=== PATIENT | female | born 1970 | race Caucasian/White ===

== ENCOUNTER 2017-01-19 09:06 | Observation (INO) ==
[2017-01-19] MEDS ORDERED: *HR* Promethazine 25 MG/ML VIAL IM ONE (09:15)
[2017-01-19] MEDS ORDERED: *HR* HYDROmorphone (PF) 1 MG/ML SYRINGE IM ONE ×2 (09:15→09:53)
--- NOTE | 2017-01-19 09:15 | Emergency Department Note ---
Disposition Clinical Impression: Intractable vomiting with nausea UTI (urinary tract infection) Qualifiers: Urinary tract infection type: acute cystitis Hematuria presence: without hematuria Qualified Code(s): N30.00 - Acute cystitis without hematuria Disposition: Admitted As Inpatient Condition: Good Back Pain HPI - General Chief Complaint: ED Urogenital-Female Stated Complaint: "think I have a kidney stone" Time Seen by Provider: 01/19/17 09:13 Source: patient, family Mode of arrival: private vehicle Limitations: no limitations Nursing Notes Reviewed: Yes Vital Signs Reviewed: Yes - History of Present Illness HPI Narrative: History of that she woke 2-3 hours prior to arrival severe sharp pain in her left flank. With that she has had persistent nausea, vomiting and dry heaving. She relates she has had similar pains before with kidney stones with the last one being about 6 months ago. She also states she has had a partial nephrectomy and had a reconstruction on her bladder. Nothing makes this pain better or worse. She denies associated diarrhea, constipation or urinary trouble. She denies any vaginal discharge or bleeding. She states she is on Depo-Provera and has no concern for current . Pt Subjective Complaint: back pain Onset (ago): hour(s) (2) Duration: constant Similar Symptoms Previously: Yes Location: left flank Pain Severity: severe Quality: sharp Radiation: none Improves with: none Worsens with: none Context: history of kidney stones Associated symptoms: Denies: numbness, weakness, difficulty walking, incontinence of bowel/bladder, fever, chills, abdominal pain, dysuria, hematuria - Related Data Home Medications Medication Instructions Recorded Confirmed Tizanidine HCl [Zanaflex] 4 mg PO BID 08/13/16 01/19/17 Carisoprodol [Soma] 350 mg PO QID 11/10/16 01/19/17 Previous Rx's Medication Instructions Recorded Gabapentin [Neurontin] 200 mg PO TID #21 capsule 08/13/16 Allergies Allergy/AdvReac Type Severity Reaction Status Date / Time meloxicam Allergy See Verified 01/19/17 09:07 Comments steriods Allergy See Uncoded 01/19/17 09:07 Comments All systems ED: reviewed and negative except as stated. Past Medical History - Past Medical History Attestation: Yes The following information was validated with the patient. Source: patient, old records reviewed, nursing notes reviewed Medical history: Reports: arthritis, GERD, kidney stones, renal disease Surgical history: Reports: other (left kidney partial resection, bladder reconstruction.) Psychiatric history: Reports: no psych history REJOGGER history: Reports: bilateral tubal ligation - Social History Smoking Status: Current every day smoker Smokeless Tobacco Status: No Alcohol use: Reports: none Drug use: Reports: marijuana Physical Exam - General Limitations: no limitations General appearance: alert, in distress - Head Head exam: atraumatic, normocephalic, normal inspection - Eye Eye exam: Present: normal appearance, PERRL, EOMI. Absent: scleral icterus, conjunctival injection - ENT ENT exam: normal exam, normal oropharynx, mucous membranes moist - Neck Neck exam: Present: normal inspection, full ROM, trachea midline - Chest Chest inspection: Present: normal inspection, symmetric chest wall rise - Respiratory Respiratory exam: Present: normal lung sounds bilaterally. Absent: respiratory distress, wheezes, prolonged expiratory phase - Cardiovascular Cardiovascular exam: Present: regular rate, normal rhythm, normal heart sounds - Abdominal Exam Abdominal exam: Present: soft, Non-Tender, normal bowel sounds. Absent: tenderness, distention, guarding, rebound, rigidity - Extremities Exam Extremities exam: Present: normal inspection, full ROM, normal capillary refill. Absent: tenderness, pedal edema - Expanded Lower Extremity Exam Neurovascular/Tendon exam: Present: normal capillary refill. Absent: motor deficit, sensory deficit, tendon deficit Gait: observed and normal - Back Exam Back exam: Present: normal inspection, full ROM. Absent: tenderness, CVA tenderness (R), CVA tenderness (L), vertebral tenderness - Neurological Exam Neurological exam: Present: alert, oriented X3, normal gait - Psychiatric Psychiatric exam: Present: agitated, anxious - Skin Skin exam: Present: warm, intact, normal color, diaphoresis Course Course Narrative: 1040: Patient continues with pain to the nausea and dry heaving. I reviewed the old record and she previously has been culture positive for urinary tract infection with this pain was 0-3 white cells in her urine. She has been written to continue IV fluids, 4 of Rocephin IV and a dose of IV Ativan. Dr. Hawkins is being contacted to coordinate inpatient care this patient. Vital Signs Temperature 96.5 F L 01/19/17 09:10 Temperature 98.7 F 01/19/17 14:35 Pulse Rate 46 01/19/17 14:35 Respiratory Rate 12 01/19/17 14:35 Blood Pressure 165/127 01/19/17 14:35 O2 Sat by Pulse Oximetry 98 01/19/17 14:35 Oxygen Delivery Oxygen Delivery Room Air Back Pain/Injury - Differential Diagnosis Differential Diagnosis: Likely: strain of lumbar region, renal colic - Medical Records Medical records reviewed: Yes I reviewed the patient's medical records. Patient has had previous similar episode secondary to urinary tract infection. - Lab Data Lab results reviewed: Yes I reviewed the patient's lab results. Result diagrams: 01/19/17 10:22 01/19/17 10:22 Lab Results 01/19/17 01/19/17 01/19/17 Range/Units 09:21 10:22 10:22 WBC 9.3 (4.3-11.1) K/mcL RBC 4.61 (3.82-4.97) M/mcL Hgb 15.1 (11.5-15.4) g/dL Hct 44.3 (35.3-44.9) % MCV 96.1 (83.0-100.0) fL MCH 32.8 (28.0-33.3) pg MCHC 34.1 (31.6-35.5) g/dL RDW 12.4 (11.5-14.5) % Plt Count 191 (140-400) K/mcL MPV 11.8 (9.4-12.4) fL Immature Gran % 0.6 (0-4) % Seg Neutrophils % 79.5 % Lymphocytes % 15.4 % Monocytes % 3.6 % Eosinophils % 0.1 % Basophils % 0.8 % Neutrophils # 7.4 (1.6-8.9) K/mcL Lymphocytes # 1.4 (0.6-4.6) K/mcL Monocytes # 0.3 (0.0-1.3) K/mcL Eosinophils # 0.0 (0.0-0.6) K/mcL Basophils # 0.1 (0.0-0.2) K/mcL Sodium 141 (136-145) mEq/L Potassium 3.9 (3.5-4.5) mEq/L Chloride 109 (98-109) mEq/L Carbon Dioxide 16 L (19-29) mEq/L BUN 9 (7-20) mg/dL Creatinine 0.77 (0.57-1.11) mg/dL Est GFR ( Amer) > 60 (> 60) Est GFR (Non-Af Amer) > 60 (> 60) BUN/Creatinine Ratio 12 (6-26) Glucose 163 H (70-99) mg/dL Calculated Osmolality 294 (280-300) Calcium 10.1 (8.6-10.8) mg/dL Urine Color Dark Yellow (Yellow) Urine Clarity Slightly Cloudy A (Clear) Urine pH 5.5 (5.0-8.0) pH Units Ur Specific [place] >= 1.030 H (1.010-1.025) Urine Protein 100 H (Neg-Trace) mg/dL Urine Glucose (UA) Normal (Normal) mg/dL Urine Ketones 80 H (Negative) mg/dL Urine Blood Negative (Negative) Urine Nitrite Negative (Negative) Urine Bilirubin Moderate H (Negative) Urine Urobilinogen Normal (Normal) mg/dL Ur Leukocyte Esterase Negative (Negative) Urine Microscopic RBC 0-3 (0-3) per hpf Urine Microscopic WBC 0-3 (0-3) per hpf Ur Squamous Epith Cells Moderate H (None-Few) per lpf Urine Bacteria Moderate H (None-Few) per hpf Urine Mucus Moderate H (Few) Ur Culture Indicated? NO (NO) - Radiology Data Radiology results reviewed: Yes I reviewed the patient's radiology results. CT is performed of the abdomen and pelvis. This shows postsurgical changes to the left kidney with some nephrolithiasis present. Ureter appears free of obstruction or stone. No other acute processes seen in the abdomen to account for this patient's severe left flank pain. This is on my interpretation. Impressions Abdomen/Pelvis CT 01/19/17 09:14 IMPRESSION: Stable noncontrast findings of the abdomen and pelvis. No acute abnormality. D/ / Leena Mcmillan Cha, MD / Leena Mcmillan Cha, MD Interpreting Provider: Leena Mcmillan Cha, MD
[2017-01-19 09:26] LABS: Bilirubin,Urine Moderate (Negative); Blood,Urine Negative (Negative); Clarity,Urine Slightly Cloudy (Clear); Glucose,Urine (UA) Normal (Normal); Ketones,Urine 80 mg/dL (Negative); Leukocyte Esterase,Urine Negative (Negative); Nitrite,Urine Negative (Negative); PH,Urine 5.5 pH Units (5.0-8.0); Protein,Urine 100 mg/dL (Neg-Trace); Specific Gravity,Urine >= 1.030 (1.010-1.025); Urobilinogen,Urine Normal (Normal)
[2017-01-19 09:33] LABS: Color,Urine Dark Yellow (Yellow)
[2017-01-19 09:35] LABS: Bacteria,Urine Moderate per hpf (None-Few); Mucus,Urine Moderate (Few); RBC,Urine 0-3 per hpf (0-3); Squamous Epithelial Cell,Urine Moderate per lpf (None-Few); WBC,Urine 0-3 per hpf (0-3)
[2017-01-19] MEDS ORDERED: Ondansetron 4 MG/2 ML VIAL IM ONE (09:53)
[2017-01-19] MEDS ORDERED: 0.9 % Sodium Chloride 1,000 ML IVC ONE (09:54)
[2017-01-19 10:40] LABS: BUN/Creatinine Ratio 12 (6-26); Blood Urea Nitrogen 9 mg/dL (7-20); Calcium 10.1 mg/dL (8.6-10.8); Carbon Dioxide 16 mEq/L (19-29); Chloride 109 mEq/L (98-109); Glucose 163 mg/dL (70-99); Osmolality,Calculated 294 (280-300); Potassium 3.9 mEq/L (3.5-4.5); Sodium 141 mEq/L (136-145); eGFR For African Americans > 60 (> 60); eGFR For Non-African Americans > 60 (> 60)
[2017-01-19 10:41] LABS: Basophils # 0.1 K/mcL (0.0-0.2); Basophils % 0.8 %; Eosinophils % 0.1 %; Hematocrit 44.3 % (35.3-44.9); Hemoglobin 15.1 g/dL (11.5-15.4); Immature Granulocytes % 0.6 % (0-4); Lymphocytes # 1.4 K/mcL (0.6-4.6); Lymphocytes % 15.4 %; Mean Corpuscular HGB Conc 34.1 g/dL (31.6-35.5); Mean Corpuscular Hemoglobin 32.8 pg (28.0-33.3); Mean Corpuscular Volume 96.1 fL (83.0-100.0); Mean Platelet Volume 11.8 fL (9.4-12.4); Monocytes # 0.3 K/mcL (0.0-1.3); Monocytes % 3.6 %; Neutrophils # 7.4 K/mcL (1.6-8.9); Platelet Count 191 K/mcL (140-400); Red Blood Count 4.61 M/mcL (3.82-4.97); Red Cell Distribution Width 12.4 % (11.5-14.5); Segmented Neutrophils % 79.5 %
[2017-01-19] MEDS ORDERED: *HR* LORazepam 2 MG/ML VIAL IVP ONE (10:43)
[2017-01-19] MEDS ORDERED: Haloperidol Lactate 5 MG/ML VIAL IVP ONE (11:12)
[2017-01-19] MEDS ORDERED: 0.9 % Sodium Chloride 1,000 ML IVC SCH (13:28)
[2017-01-19] MEDS ORDERED: *HR* Promethazine 25 MG/ML VIAL IVP PRN (13:28)
[2017-01-19] MEDS ORDERED: Ondansetron 4 MG/2 ML VIAL IVP PRN ×2 (13:28→18:18)
[2017-01-19] MEDS ORDERED: Naloxone 0.4 MG/ML INJ IVP PRN (13:28)
[2017-01-19] MEDS: *HR* HYDROmorphone (PF) 1 MG/ML SYRINGE IVP PRN ×3 (13:47→21:57)
--- NOTE | 2017-01-19 18:09 | Internal Med History&Physical ---
Date of Encounter: 01/19/17 Time of Encounter: 17:35 Assessment and Plan (1) Intractable vomiting with nausea Current visit: Yes Status: Acute Etiology not obvious. Will continue IV fluids and analgesics and reassess patient and recheck labs in a.m. Qualifiers: Vomiting type: unspecified Qualified Code(s): R11.2 - Nausea with vomiting , unspecified Internal Medicine - H&P: HPI Chief complaint: Vomiting and left flank pain Admitted From: Home Plans for Post Hospital Care: Home History of present illness: Ms. Hobbs is a 46 year old female who came to emergency room stating she had developed severe left flank pain with vomiting early this morning. She states she vomited 8-10 times but denies hematemesis. She felt she was likely passing a kidney stone. She came to the emergency room and was evaluated. CT scan showed no obvious kidney stone outside of the left lower pole of the kidney. She did not have hematuria. She was admitted to [facility] floor for ongoing care needs. She reports her most recent similar episode of flank pain and vomiting was July 2016. She was told at that time it might be due to ovulation issues and she was placed on Depo-Provera. She was hospitalized last at [facility] December 2015 with vomiting and diarrhea possibly secondary to viral gastroenteritis. Past Med Surg Social Fam HX - Past Medical History Medical history: arthritis, GERD, kidney stones, renal disease Psychiatric history: no psych history - Past Surgical History Surgical History: other - Social History Smoking Status: Current every day smoker Smokeless Tobacco Status: No Alcohol use: none Drug use: marijuana - Family History Mother Hx Family Cardiac Disorders: No (grandmother had cardiac issue) Hx Family Respiratory Disorders: No Hx Family Cancer: Yes (cervix) Hx Family GI Disorders: Yes (GERD) Hx Family Endocrine Disorder: No (grandmother has DM) Hx Family Neuromuscular Disorders: No Hx Family Neurologic Disorders: No Hx Family HEENT Disorders: No Hx Family Autoimmune Disorders: No Internal Medicine - H&P: Meds Gabapentin [Neurontin] 200 mg PO TID #21 capsule 08/13/16 [Rx] Tizanidine HCl [Zanaflex] 4 mg PO BID 08/13/16 [History] Carisoprodol [Soma] 350 mg PO QID 11/10/16 [History] Allergies meloxicam Allergy (Verified 01/19/17 09:07) See Comments rectal bleeding steriods Allergy (Uncoded 01/19/17 09:07) See Comments rectal bleeding and stomach cramping All Systems PM: A 10-system review of systems was performed and is negative for pertinent findings except as documented above in the HPI. Review of systems: Review of systems from her December 2015 history and physical were reviewed and revised as below. Gen.: Her weight is increased from 67.614 kg on 12/27/2015 to 77.11 kg on admission now. Cardiovascular: She denies OK hypertension heart failure angina DVT or pulmonary embolus. Respiratory: She smoked since age 15 up to 2 packs per day. She has not been tested for COPD and does not wear home oxygen. GI: She denies disorders of her liver gallbladder or exocrine pancreas. : She had duplication of left ureter congenitally. She describes what sounds to be significant reflux resulting in recurrent UTIs and development of an abscess the left kidney. There was resection of the cyst/abscess area and resection of one of the ureters on the left side in 1988. She had reconstructive bladder surgery 1993 and 1995. She has had occasional UTIs since then. She states she has not seen a urologist in approximately 15 years. Neurologic: She denies large distribution strokes or seizures. Endocrine: She denies diabetes thyroid disease or hyperlipidemia Hematology/oncology: She denies blood disorders cancers or anemia. Psychiatric: She denies anxiety depression or other mental health issues Musk skeletal: She denies arthritis gout or osteoporosis. - Constitutional Vitals: Temp Pulse Resp BP Pulse Ox 98.7 F 46 12 165/127 98 01/19/17 14:35 01/19/17 14:35 01/19/17 14:35 01/19/17 14:35 01/19/17 14:35 Exam: Gen.: She is a well-developed well-nourished female lying in bed who appears in mild to moderate pain periodically during examination HEENT: Head is atraumatic and normal cephalic. Eyes: EOMI. There is no scleral icterus. Mouth: Mucosa is moist. Neck: Supple and nontender. There is no thyromegaly or adenopathy noted. Heart: Regular without murmurs gallops or ectopics Lungs: No wheezes or crackles are heard. Abdomen: Bowel sounds are present. No masses or guarding are noted. Extremities: There is no cyanosis edema or clubbing noted. Dorsalis pedis and posttibial pulses are 1-2 over 2 bilaterally. Neurologic: Mental status: She is talkative and a good historian. Cranial nerves: Smile is symmetric. Forehead wrinkles bilaterally. Tongue protrudes midline. EOMI. Motor: There is no pronator drift. Cerebellar: Finger to nose is intact bilaterally. Skin: Warm and dry Internal Med - H&P Results - Labs CBC & Chem 7: 01/19/17 10:22 01/19/17 10:22
[2017-01-19] MEDS: 0.45 % Sodium Chloride w/KCl 20 MEQ/1,000 ML MLS IVC SCH (18:58)
[2017-01-19] MEDS: *HR* Promethazine 25 MG/ML VIAL IVP PRN ×2 (18:59→23:05)
[2017-01-20 01:54] LABS: Amphetamine Screen,Urine Negative ng/mL (Cutoff=1000); Barbiturate Screen,Urine Negative ng/mL (Cutoff=200); Benzodiazepines Screen,Urine Positive ng/mL (Cutoff=200); Cannabinoid Screen,Urine Positive ng/mL (Cutoff = 50); Cocaine Screen,Urine Negative ng/mL (Cutoff= 300); Opiate Screen,Urine Negative ng/mL (Cutoff=300); Phencyclidine Screen,Urine Negative ng/mL (Cutoff=25)
[2017-01-20] MEDS: *HR* HYDROmorphone (PF) 1 MG/ML SYRINGE IVP PRN ×5 (02:24→21:02)
[2017-01-20] MEDS: *HR* Promethazine 25 MG/ML VIAL IVP PRN (03:10)
[2017-01-20] MEDS: 0.45 % Sodium Chloride w/KCl 20 MEQ/1,000 ML MLS IVC SCH ×2 (03:12→12:23)
[2017-01-20 08:20] LABS: Basophils % 0.3 %; Hematocrit 35.2 % (35.3-44.9); Hemoglobin 12.3 g/dL (11.5-15.4); Immature Granulocytes % 0.3 % (0-4); Lymphocytes # 1.5 K/mcL (0.6-4.6); Lymphocytes % 16.1 %; Mean Corpuscular HGB Conc 34.9 g/dL (31.6-35.5); Mean Corpuscular Hemoglobin 32.3 pg (28.0-33.3); Mean Corpuscular Volume 92.4 fL (83.0-100.0); Mean Platelet Volume 12.7 fL (9.4-12.4); Monocytes # 0.6 K/mcL (0.0-1.3); Monocytes % 6.4 %; Neutrophils # 7.2 K/mcL (1.6-8.9); Platelet Count 162 K/mcL (140-400); Red Blood Count 3.81 M/mcL (3.82-4.97); Red Cell Distribution Width 12.3 % (11.5-14.5); Segmented Neutrophils % 76.9 %
[2017-01-20] MEDS: Pantoprazole 40 MG VIAL IVP SCH (08:51)
[2017-01-20 09:05] LABS: Alanine Aminotransferase 8 Units/L (0-55); Albumin 3.5 g/dL (3.5-5.0); Albumin/Globulin Ratio 1.2 (1.1-2.2); Alkaline Phosphatase 53 Units/L (38-126); Aspartate Amino Transferase 12 Units/L (5-34); BUN/Creatinine Ratio 15 (6-26); Bilirubin,Total 0.3 mg/dL (0.2-1.2); Blood Urea Nitrogen 10 mg/dL (7-20); Calcium 9.2 mg/dL (8.6-10.8); Carbon Dioxide 23 mEq/L (19-29); Chloride 108 mEq/L (98-109); Globulin 2.9 g/dL (2.4-3.5); Glucose 100 mg/dL (70-99); Magnesium 1.6 mg/dL (1.6-2.6); Osmolality,Calculated 287 (280-300); Sodium 139 mEq/L (136-145); Total Protein 6.4 g/dL (6.0-8.3); eGFR For African Americans > 60 (> 60); eGFR For Non-African Americans > 60 (> 60)
--- NOTE | 2017-01-20 09:52 | Internal Med Progress Note ---
Date of Encounter: 01/20/17 Time of Encounter: 09:45 - Assessment and plan (1) Intractable vomiting with nausea Current Visit: Yes Status: Acute Assessment and plan: January 20. We will decrease IV fluid rate and start clear liquids. Anticipate discharge home tomorrow. Qualifiers: Vomiting type: unspecified Qualified Code(s): R11.2 - Nausea with vomiting , unspecified - Subjective Interval history: January 20. She has no new complaints and states she feels significantly improved. - Constitutional Vitals: Temp Pulse Resp BP Pulse Ox 98.6 F 66 16 107/66 96 01/20/17 08:16 01/20/17 08:16 01/20/17 08:16 01/20/17 08:16 01/20/17 08:16 Exam: She is resting comfortably in bed and appears in no acute distress. Her affect is much more bright and cheerful. I reviewed her medications and lab results. Internal Medicine: Result - Labs CBC & Chem 7: 01/20/17 07:30 01/20/17 07:32 Labs: Short CBC 01/20/17 Range/Units 07:30 WBC 9.4 (4.3-11.1) K/mcL Hgb 12.3 D (11.5-15.4) g/dL Hct 35.2 L (35.3-44.9) % Plt Count 162 (140-400) K/mcL Neutrophils # 7.2 (1.6-8.9) K/mcL BMP 01/20/17 07:32 Sodium 139 Potassium 4.0 Chloride 108 Carbon Dioxide 23 BUN 10 Creatinine 0.67 Glucose 100 H Calcium 9.2 Liver Function 01/20/17 Range/Units 07:32 Total Bilirubin 0.3 (0.2-1.2) mg/dL AST 12 (5-34) Units/L ALT 8 (0-55) Units/L Alkaline Phosphatase 53 (38-126) Units/L Albumin 3.5 (3.5-5.0) g/dL Consult Discharge Plan - Plan Referrals: NO,PCP [Primary Care Provider] - 1 week
[2017-01-21] MEDS: *HR* HYDROmorphone (PF) 1 MG/ML SYRINGE IVP PRN ×4 (01:13→13:39)
[2017-01-21] MEDS: 0.45 % Sodium Chloride w/KCl 20 MEQ/1,000 ML MLS IVC SCH (01:13)
[2017-01-21 07:45] VITALS: BP 166/100
[2017-01-21] MEDS: Pantoprazole 40 MG VIAL IVP SCH (08:21)
[2017-01-21] MEDS: *HR* Promethazine 25 MG/ML VIAL IVP PRN (08:21)
[2017-01-21] MEDS ORDERED: *HR* HYDROmorphone (PF) 1 MG/ML SYRINGE IVP ONE (11:15)
--- NOTE | 2017-01-21 16:26 | Discharge Summary ---
Date of Encounter: 01/21/17 Time of Encounter: 16:15 - Discharge Diagnosis (1) Intractable vomiting with nausea Priority: Primary Status: Resolved Qualifiers: Vomiting type: unspecified Qualified Code(s): R11.2 - Nausea with vomiting , unspecified - Discharge Medications Home Medications: Tizanidine HCl [Zanaflex] 4 mg PO BID 08/13/16 [History] Carisoprodol [Soma] 350 mg PO QID 11/10/16 [History] Allergies/Adverse Reactions: Allergies meloxicam Allergy (Verified 01/19/17 09:07) See Comments rectal bleeding steriods Allergy (Uncoded 01/19/17 09:07) See Comments rectal bleeding and stomach cramping Date of admission: 01/19/17 12:50 Primary care physician: PCP NO - Patient Status Disposition: Home, Self-Care Condition: Good Overall status at discharge: patient is progressing back to baseline - Discharge Instructions Follow Up With: NO,PCP [Primary Care Provider] - 1 week - Diet and Activity Activity: resume usual activities as tolerated Diet: advance to your usual diet Hospital course: Ms. Hobbs is a 46 year old female who came to emergency room stating she had developed severe left flank pain with vomiting early this morning. She states she vomited 8-10 times but denies hematemesis. She felt she was likely passing a kidney stone. She came to the emergency room and was evaluated. CT scan showed no obvious kidney stone outside of the left lower pole of the kidney. She did not have hematuria. She was admitted to [facility] for ongoing care needs. Initial orders were written by the emergency room physician. I saw her on January 19 and performed a history and physical. She was given IV fluids and analgesics. Follow-up labs the following day showed normal WBC with no significant left shift on differential. Her CO2 normalized to 23. Urine drug screen tested positive for oxycodone, benzodiazepines, and THC. The screen was drawn January 20 after she had received Dilaudid. When I saw her on January 21 she stated she felt improved and been able to tolerate food and liquids adequately. She felt stable for discharge home which I felt was reasonable. I told her I was not certain of the cause of her abdominal pain. I felt it might be acute gastroenteritis. She will establish/ follow at [facility] within one week. - Time Spent with Patient Total time spent providing and/or coordinating discharge services: - Constitutional Vitals: Temp Pulse Resp BP Pulse Ox 98.4 F 58 16 166/100 98 01/21/17 07:05 01/21/17 07:05 01/21/17 07:05 01/21/17 07:05 01/21/17 07:05
== END 2017-01-21 17:37 | disposition home or self-care (01) ==
LOC: INPPIK 09:06 → EMEROOPIK 09:06 → INPPIK 13:14
PROVIDERS: ADMIT Internal Medicine; ATTEND Internal Medicine